=== PATIENT | male | born 1955 | race Hispanic/Latino ===

== ENCOUNTER 2017-12-03 13:41 | Inpatient (IN) | payer MEDICARE ==
[~2017-12-03] VITALS: Ht 167.6 cm; Wt 117.8 kg
[~2017-12-03 13:41] MED LIST: CYAN10009 PO; FURO40SO4 PO; HYDR-4068 PO; LISI10TA7 PO; LORA1TAB3 PO; MILK500C PO; MONT10TA21 PO; MULT-1259 PO; SPIR100T5 PO; TAMS0.4C32 PO
[2017-12-03 14:28] LABS: APPEARANCE,URINE Cloudy (CLEAR); BILIRUBIN,URINE Negative (NEGATIVE); COLOR,URINE Dark Yellow (YELLOW); GLUCOSE, URINE (UA) Negative (NEGATIVE); KETONES,URINE Trace mg/dL (NEGATIVE); LEUKOCYTE ESTERASE ,URINE Large (NEGATIVE); NITRATE,URINE Positive (NEGATIVE); OCCULT BLOOD,URINE Large (NEGATIVE); PH,URINE 6.5 (5.0-8.0); PROTEIN,URINE 300 (NEGATIVE)
[2017-12-03 14:43] LABS: BACTERIA,URINE Few /HPF (None Seen); RBC,URINE Full Field /HPF (0-1); SQUAMOUS EPITHELIAL CELL,UR 0-2 /HPF (0-2); WBC,URINE >100 /HPF (0-1); YEAST,URINE BUDDING Moderate /HPF (None Seen)
[2017-12-03] MEDS ORDERED: SODIUM CHLORIDE 0.9% 1000ML 1,000 ML IV ONE (14:59)
[2017-12-03] MEDS ORDERED: ONDANSETRON HCL MDV 20ML 2 MG/ML VIAL ONE (14:59)
[2017-12-03] MEDS ORDERED: MORPHINE SULFATE 4 MG/1ML SYG ONE (15:00)
[2017-12-03] MEDS ORDERED: ACETAMINOPHEN 325 MG TAB ONE (15:00)
[2017-12-03] MEDS ORDERED: SODIUM CHLORIDE 0.9% 1000ML 3,000 ML IV ONE (15:03)
[2017-12-03 15:09] LABS: BASOPHILS % (AUTO) 0.4 % (0.0-5.0); EOSINOPHILS % (AUTO) 0.4 % (0.0-8.0); HEMATOCRIT 36.2 % (42-54); LYMPHOCYTES % (AUTO) 11.8 % (21.0-51.0); MEAN CORPUSCULAR HEMOGLOBIN 36.3 pg (27.0-33.0); MEAN CORPUSCULAR HGB CONC 36.1 g/dL (32.0-36.0); MEAN CORPUSCULAR VOLUME 100.5 fL (79-99); MONOCYTES % (AUTO) 11.5 % (3.0-13.0); NEUTROPHILS % (AUTO) 75.9 % (40.0-77.0); NUCLEATED RED BLOOD CELLS 0.1 % (0.0-0.19); PLATELET COUNT (AUTO) 99 K/uL (130-400); RED CELL DISTRIBUTION WIDTH 14.7 % (11.0-15.5); WHITE BLOOD COUNT (AUTO) 7.8 K/uL (4.8-10.8)
[2017-12-03 15:14] LABS: INR 1.25 (0.85-1.15); PARTIAL THROMBOPLASTIN TIME 28.5 SEC (26.3-35.5); PROTHROMBIN TIME 12.8 SEC (9.6-11.6)
[2017-12-03] MEDS ORDERED: CEFTRIAXONE SODIUM 1 GM ONE (15:16)
[2017-12-03 15:18] LABS: CREATININE 0.8 mg/dL (0.5-1.5)
[2017-12-03 15:22] LABS: ALBUMIN 2.7 g/dL (3.5-5.0); BILIRUBIN,DIRECT 0.6 mg/dL (0.0-0.3); TOTAL PROTEIN, SERUM 6.6 g/dL (6.0-8.3)
[2017-12-03 15:31] LABS: CREATINE KINASE MB 0.6 ng/mL (0.5-3.6); CREATINE KINASE, TOTAL 101 U/L (21-232); MYOGLOBIN 35 ng/mL (10-92); TROPONIN I < 0.04 ng/mL (0.00-0.06)
[2017-12-03] MEDS ORDERED: METRONIDAZOLE 500MG/100ML BAG 100 ML ONE (18:55)
[2017-12-03] MEDS ORDERED: TRAMADOL HCL 50 MG TABLET ONE (21:08)
[2017-12-04] MEDS ORDERED: CEFTRIAXONE SODIUM 1 GM ONE (03:15)
[2017-12-04 07:00] LABS: BASOPHILS % (AUTO) 0.3 % (0.0-5.0); EOSINOPHILS % (AUTO) 0.8 % (0.0-8.0); HEMATOCRIT 32.3 % (42-54); MEAN CORPUSCULAR HEMOGLOBIN 35.4 pg (27.0-33.0); MEAN CORPUSCULAR HGB CONC 35.2 g/dL (32.0-36.0); MEAN CORPUSCULAR VOLUME 100.7 fL (79-99); MONOCYTES % (AUTO) 11.1 % (3.0-13.0); NEUTROPHILS % (AUTO) 72.8 % (40.0-77.0); NUCLEATED RED BLOOD CELLS 0.2 % (0.0-0.19); PLATELET COUNT (AUTO) 77 K/uL (130-400); RED BLOOD CELL COUNT(AUTO) 3.21 MIL/uL (4.50-6.20); RED CELL DISTRIBUTION WIDTH 14.9 % (11.0-15.5)
[2017-12-04 07:09] LABS: CREATININE 0.7 mg/dL (0.5-1.5)
[2017-12-04 07:16] LABS: ALBUMIN 2.2 g/dL (3.5-5.0); MAGNESIUM 1.5 mg/dL (1.80-2.40); TOTAL PROTEIN, SERUM 5.5 g/dL (6.0-8.3)
[2017-12-04] MEDS ORDERED: TRAMADOL HCL 50 MG TABLET ONE (09:27)
[2017-12-04 13:25] VITALS: BP 151/76
[2017-12-04] MEDS ORDERED: ACETAMINOPHEN 325 MG TAB PO PRN (13:45)
[2017-12-04] MEDS ORDERED: TRAMADOL HCL 50 MG TABLET PO PRN (13:45)
[2017-12-04] MEDS ORDERED: ONDANSETRON HCL MDV 20ML 2 MG/ML VIAL IVP PRN (13:45)
[2017-12-04] MEDS ORDERED: CEFTRIAXONE SODIUM 1 GM IVP SCH (14:00)
[2017-12-04] MEDS: PANTOPRAZOLE SODIUM 40 MG TABLET.DR PO SCH (14:55)
[2017-12-04] MEDS: SODIUM CHLORIDE 0.9% 1000ML 1,000 ML IV SCH ×2 (14:56→23:02)
[2017-12-04 16:00] VITALS: BP 157/73
[2017-12-04] MEDS ORDERED: ASPI-555 PO (19:51)
[2017-12-04 20:00] VITALS: BP 140/74
[2017-12-04 23:30] VITALS: BP 139/63
[2017-12-05] MEDS: CEFTRIAXONE SODIUM 1 GM IVP SCH (03:03)
[2017-12-05 03:08] VITALS: BP 145/75
[2017-12-05 05:44] LABS: BASOPHILS % (AUTO) 0.4 % (0.0-5.0); EOSINOPHILS % (AUTO) 1.8 % (0.0-8.0); HEMATOCRIT 31.3 % (42-54); LYMPHOCYTES % (AUTO) 19.9 % (21.0-51.0); MEAN CORPUSCULAR HEMOGLOBIN 36.6 pg (27.0-33.0); MEAN CORPUSCULAR HGB CONC 36.2 g/dL (32.0-36.0); MONOCYTES % (AUTO) 11.5 % (3.0-13.0); NEUTROPHILS % (AUTO) 66.4 % (40.0-77.0); NUCLEATED RED BLOOD CELLS 0.1 % (0.0-0.19); PLATELET COUNT (AUTO) 76 K/uL (130-400); RED CELL DISTRIBUTION WIDTH 14.5 % (11.0-15.5); WHITE BLOOD COUNT (AUTO) 4.4 K/uL (4.8-10.8)
[2017-12-05 06:02] LABS: ALBUMIN 2.1 g/dL (3.5-5.0); BILIRUBIN,TOTAL 2.9 mg/dL (0.2-1.0); CREATININE 0.8 mg/dL (0.5-1.5); MAGNESIUM 1.6 mg/dL (1.80-2.40); PHOSPHORUS 2.7 mg/dL (2.5-4.9); POTASSIUM 3.9 mmol/L (3.5-5.1); TOTAL PROTEIN, SERUM 5.4 g/dL (6.0-8.3); URIC ACID 2.9 mg/dL (2.6-7.2)
[2017-12-05] MEDS: PANTOPRAZOLE SODIUM 40 MG TABLET.DR PO SCH (08:44)
[2017-12-05 09:08] VITALS: BP 133/65
[2017-12-05 12:00] VITALS: BP 146/69
[2017-12-05] MEDS: SODIUM CHLORIDE 0.9% 1000ML 1,000 ML IV SCH (12:08)
[2017-12-05] MEDS ORDERED: MAGNESIUM 2GM PREMIX 50ML 50 ML IV SCH (14:30)
[2017-12-05] MEDS ORDERED: LORAZEPAM 1 MG TABLET PO PRN (14:45)
[2017-12-05] MEDS: HYDROCODONE/ACETAMINOPHEN 10/325 MG TAB PO PRN (15:34)
[2017-12-05 16:54] VITALS: BP 143/73
[2017-12-05 19:30] VITALS: BP 154/77
[2017-12-05] MEDS ORDERED: MONTELUKAST SODIUM 10 MG TAB PO SCH (21:00)
[2017-12-05 23:15] VITALS: BP 138/71
[2017-12-06] MEDS: CEFTRIAXONE SODIUM 1 GM IVP SCH (02:36)
[2017-12-06 03:40] VITALS: BP 154/74
[2017-12-06 05:53] LABS: HEMATOCRIT 32.2 % (42-54); MEAN CORPUSCULAR HEMOGLOBIN 35.1 pg (27.0-33.0); MEAN CORPUSCULAR HGB CONC 34.7 g/dL (32.0-36.0); MEAN CORPUSCULAR VOLUME 101.1 fL (79-99); PLATELET COUNT (AUTO) 87 K/uL (130-400); RED BLOOD CELL COUNT(AUTO) 3.18 MIL/uL (4.50-6.20); RED CELL DISTRIBUTION WIDTH 14.5 % (11.0-15.5); WHITE BLOOD COUNT (AUTO) 4.4 K/uL (4.8-10.8)
[2017-12-06 06:25] LABS: ALBUMIN 2.1 g/dL (3.5-5.0); BILIRUBIN,TOTAL 1.9 mg/dL (0.2-1.0); CREATININE 0.8 mg/dL (0.5-1.5); POTASSIUM 3.8 mmol/L (3.5-5.1); TOTAL PROTEIN, SERUM 5.6 g/dL (6.0-8.3)
[2017-12-06] MEDS: PANTOPRAZOLE SODIUM 40 MG TABLET.DR PO SCH (08:16)
[2017-12-06] MEDS ORDERED: **HM** MILK THISTLE 1000MG PO SCH (09:00)
[2017-12-06] MEDS ORDERED: ASPIRIN 81 MG EC TAB PO SCH (09:00)
[2017-12-06] MEDS ORDERED: FUROSEMIDE 40 MG TABLET PO SCH (09:00)
[2017-12-06] MEDS ORDERED: MULTIVITAMINS/MINERALS/IRO TAB PO SCH (09:00)
[2017-12-06] MEDS ORDERED: TAMSULOSIN HCL 0.4 MG CAP.ER.24H PO SCH (09:00)
[2017-12-06] MEDS ORDERED: SPIRONOLACTONE 25 MG TAB PO SCH (09:00)
[2017-12-06] MEDS ORDERED: CYANOCOBALAMIN (VITAMIN B-12) 1,000 MCG TABLET PO SCH (09:00)
[2017-12-06 09:18] VITALS: BP 160/67
[2017-12-06 12:16] VITALS: BP 117/69
[2017-12-06] MEDS: HYDROCODONE/ACETAMINOPHEN 10/325 MG TAB PO PRN (12:57)
== END 2017-12-06 13:05 | disposition home or self-care (01) | DRG 694 ==
LOC: EDH 13:41 → EDHIP 18:27 → 4CH 12-04 12:53
PROVIDERS: ADMIT Internal Medicine Nephrology; ATTEND Internal Medicine Nephrology
DX: N13.2 Hydronephrosis with renal and ureteral calculous obstruction (principal); D69.6 Thrombocytopenia, unspecified; K74.60 Unspecified cirrhosis of liver; Z68.41 Body mass index [BMI] 40.0-44.9, adult; E83.42 Hypomagnesemia; N39.0 Urinary tract infection, site not specified; B95.61 Methicillin susceptible Staphylococcus aureus infection as the cause of diseases classified elsewhere; B19.20 Unspecified viral hepatitis C without hepatic coma; E66.9 Obesity, unspecified; I10 Essential (primary) hypertension; N40.0 Benign prostatic hyperplasia without lower urinary tract symptoms; K57.90 Diverticulosis of intestine, part unspecified, without perforation or abscess without bleeding; K29.80 Duodenitis without bleeding
CPT/HCPCS: 36415; 71045; 74176; 76700; 80048; 80053; 80076; 81001; 82550; 82553; 83605; 83735; 83874; 84100; 84484; 84550; 85025; 85027; 85610; 85730; 87040; 87088; 87186; 93005; A4218; J0696; J2270; J3475; J3490; J7030

== ENCOUNTER 2018-05-06 12:46 | Inpatient (IN) | payer MEDICARE ==
[~2018-05-06 12:46] MED LIST changes: +ASPI-555 PO; -CYAN10009 PO; +ESOM40CA54 PO; -FURO40SO4 PO; +FURO40TA5 PO; +LACT10PA4 PO; -LORA1TAB3 PO; -MILK500C PO; -MULT-1259 PO; +PROP10TA10 PO
[2018-05-06 13:14] LABS: BASOPHILS % (AUTO) 1.2 % (0.0-5.0); EOSINOPHILS % (AUTO) 0.9 % (0.0-8.0); HEMATOCRIT 32.4 % (42-54); LYMPHOCYTES % (AUTO) 24.5 % (21.0-51.0); MEAN CORPUSCULAR HGB CONC 35.7 g/dL (32.0-36.0); MONOCYTES % (AUTO) 11.6 % (3.0-13.0); NEUTROPHILS % (AUTO) 61.8 % (40.0-77.0); PLATELET COUNT (AUTO) 97 K/uL (130-400); RED BLOOD CELL COUNT(AUTO) 3.21 MIL/uL (4.50-6.20); RED CELL DISTRIBUTION WIDTH 14.9 % (11.0-15.5); WHITE BLOOD COUNT (AUTO) 6.1 K/uL (4.8-10.8)
[2018-05-06 13:20] LABS: CREATININE 1.1 mg/dL (0.5-1.5); POTASSIUM 4.2 mmol/L (3.5-5.1)
[2018-05-06 13:27] LABS: INR 1.28 (0.85-1.15); PARTIAL THROMBOPLASTIN TIME 28.8 SEC (26.3-35.5); PROTHROMBIN TIME 13.4 SEC (9.6-11.6)
[2018-05-06 13:33] LABS: ALBUMIN 2.1 g/dL (3.5-5.0); CREATINE KINASE MB 1.2 ng/mL (0.5-3.6); TOTAL PROTEIN, SERUM 5.4 g/dL (6.0-8.3)
[2018-05-06 13:45] LABS: B-TYPE NATRIURETIC PEPTIDE 112 pg/mL (0-100)
[2018-05-06] MEDS ORDERED: LACTULOSE 20 GM/30 ML UDCUP ONE (15:51)
[2018-05-06] MEDS ORDERED: CEFTRIAXONE SODIUM 1 GM ONE (15:51)
[2018-05-06] MEDS ORDERED: SODIUM CHLORIDE 0.9% 100 ML IV ONE (15:52)
[2018-05-06 17:39] LABS: APPEARANCE,URINE Cloudy (CLEAR); BILIRUBIN,URINE Small (NEGATIVE); COLOR,URINE Dark Yellow (YELLOW); GLUCOSE, URINE (UA) Negative (NEGATIVE); KETONES,URINE Trace mg/dL (NEGATIVE); LEUKOCYTE ESTERASE ,URINE Moderate (NEGATIVE); NITRATE,URINE Negative (NEGATIVE); OCCULT BLOOD,URINE Negative (NEGATIVE); PH,URINE 5.5 (5.0-8.0); PROTEIN,URINE Trace (NEGATIVE)
[2018-05-06 17:46] LABS: AMPHET/METH SCREEN,URINE NEGATIVE (NEGATIVE); BARBITURATE SCREEN, URINE NEGATIVE (NEGATIVE); BENZODIAZEPINES SCREEN,URINE NEGATIVE (NEGATIVE); CANNABINOID SCREEN,URINE NEGATIVE (NEGATIVE); COCAINE SCREEN,URINE NEGATIVE (NEGATIVE); OPIATE SCREEN,URINE POSITIVE (NEGATIVE); PHENCYCLIDINE SCREEN,URINE NEGATIVE (NEGATIVE)
[2018-05-06 17:50] VITALS: BP 116/57
[2018-05-06] MEDS ORDERED: ONDANSETRON HCL 4 MG/2 ML VIAL ONE (17:50)
[2018-05-06] MEDS ORDERED: ONDANSETRON HCL MDV 20ML 2 MG/ML VIAL IVP PRN (18:00)
[2018-05-06] MEDS ORDERED: SPIR100T5 PO (18:04)
[2018-05-06] MEDS ORDERED: IPRA4AER IH (18:04)
[2018-05-06 18:12] LABS: BACTERIA,URINE Rare /HPF (None Seen); MUCUS,URINE Moderate LPF (None Seen); RBC,URINE None Seen /HPF (0-1)
[2018-05-06 18:13] LABS: HYALINE CASTS, URINE 26-50 /LPF (0-1 /LPF)
[2018-05-06 19:23] VITALS: BP 135/63
[2018-05-06] MEDS: LACTULOSE 20 GM/30 ML UDCUP PO SCH (20:57)
[2018-05-06] MEDS: MIDODRINE HCL 5 MG TABLET PO SCH (20:57)
[2018-05-06 22:41] LABS: CREATINE KINASE MB 1.2 ng/mL (0.5-3.6); CREATINE KINASE, TOTAL 104 U/L (21-232); MYOGLOBIN 55 ng/mL (10-92); TROPONIN I < 0.04 ng/mL (0.00-0.06)
[2018-05-06 23:24] VITALS: BP 132/68
[2018-05-07 03:57] VITALS: BP 119/53
[2018-05-07 04:40] LABS: MEAN CORPUSCULAR HEMOGLOBIN 34.8 pg (27.0-33.0); MEAN CORPUSCULAR HGB CONC 34.2 g/dL (32.0-36.0); MEAN CORPUSCULAR VOLUME 101.8 fL (79-99); NUCLEATED RED BLOOD CELLS 0.1 % (0.0-0.19); PLATELET COUNT (AUTO) 63 K/uL (130-400); RED BLOOD CELL COUNT(AUTO) 3.04 MIL/uL (4.50-6.20); RED CELL DISTRIBUTION WIDTH 14.7 % (11.0-15.5)
[2018-05-07 05:12] LABS: ALBUMIN 1.8 g/dL (3.5-5.0); BILIRUBIN,TOTAL 1.4 mg/dL (0.2-1.0); CREATININE 0.9 mg/dL (0.5-1.5); MAGNESIUM 1.6 mg/dL (1.80-2.40); PHOSPHORUS 3.3 mg/dL (2.5-4.9); POTASSIUM 4.5 mmol/L (3.5-5.1); THYROID STIMULATING HORMONE 1.24 uIU/mL (0.36-3.74)
[2018-05-07 05:13] LABS: CREATINE KINASE, TOTAL 94 U/L (21-232)
[2018-05-07 05:14] LABS: MYOGLOBIN 50 ng/mL (10-92); TROPONIN I < 0.04 ng/mL (0.00-0.06)
[2018-05-07 07:00] VITALS: BP 122/42
[2018-05-07] MEDS: PANTOPRAZOLE SODIUM 40 MG TABLET.DR PO SCH (09:14)
[2018-05-07] MEDS: MIDODRINE HCL 5 MG TABLET PO SCH ×3 (09:14→20:59)
[2018-05-07] MEDS: LACTULOSE 20 GM/30 ML UDCUP PO SCH ×3 (09:15→20:59)
[2018-05-07 11:00] VITALS: BP 136/59
[2018-05-07] MEDS ORDERED: ACETAMINOPHEN EXTRA STRENGTH 500 MG TABLET ONE (13:05)
[2018-05-07] MEDS: MAGNESIUM 2GM PREMIX 50ML 50 ML IV PRN (13:12)
[2018-05-07 16:00] VITALS: BP 128/56
[2018-05-07 19:32] VITALS: BP_SYST 129; BP_SYST 145; BP_SYST 153; BP_SYST 160; BP_DIAS 70; BP_DIAS 71; BP_DIAS 75
[2018-05-07 23:32] VITALS: BP 119/55
[2018-05-08 03:43] VITALS: BP 126/61
[2018-05-08 04:24] LABS: HEMATOCRIT 31.4 % (42-54); MEAN CORPUSCULAR HEMOGLOBIN 35.9 pg (27.0-33.0); MEAN CORPUSCULAR HGB CONC 35.3 g/dL (32.0-36.0); MEAN CORPUSCULAR VOLUME 101.8 fL (79-99); PLATELET COUNT (AUTO) 88 K/uL (130-400); RED BLOOD CELL COUNT(AUTO) 3.08 MIL/uL (4.50-6.20); WHITE BLOOD COUNT (AUTO) 4.9 K/uL (4.8-10.8)
[2018-05-08 04:35] LABS: CREATININE 0.8 mg/dL (0.5-1.5); MAGNESIUM 1.5 mg/dL (1.80-2.40); POTASSIUM 4.3 mmol/L (3.5-5.1)
[2018-05-08] MEDS: MAGNESIUM 2GM PREMIX 50ML 50 ML IV PRN (05:06)
[2018-05-08 07:35] VITALS: BP 133/52
[2018-05-08] MEDS: PANTOPRAZOLE SODIUM 40 MG TABLET.DR PO SCH (07:59)
[2018-05-08] MEDS: MIDODRINE HCL 5 MG TABLET PO SCH ×2 (07:59→13:07)
[2018-05-08] MEDS: LACTULOSE 20 GM/30 ML UDCUP PO SCH ×2 (07:59→13:07)
[2018-05-08 11:37] VITALS: BP_SYST 138; BP_SYST 141; BP_SYST 150; BP_DIAS 52; BP_DIAS 69; BP_DIAS 81
[2018-05-08] MEDS ORDERED: LACT PO (14:43)
[2018-05-08 15:27] VITALS: BP 150/57
== END 2018-05-08 17:40 | disposition home or self-care (01) | DRG 315 ==
LOC: EDH 12:46 → 2AH 16:00
PROVIDERS: ADMIT Internal Medicine Nephrology; ATTEND Internal Medicine Nephrology
DX: I95.9 Hypotension, unspecified (principal); R18.8 Other ascites; E87.1 Hypo-osmolality and hyponatremia; E83.42 Hypomagnesemia; K74.60 Unspecified cirrhosis of liver; E87.6 Hypokalemia; D64.9 Anemia, unspecified; I10 Essential (primary) hypertension; Z79.899 Other long term (current) drug therapy
CPT/HCPCS: 36415; 70450; 71045; 80048; 80053; 80305; 81001; 82140; 82550; 82553; 83605; 83690; 83735; 83874; 83880; 84100; 84443; 84484; 85025; 85027; 85610; 85730; 86850; 86900; 86901; 93005; 93306; 93880; J0696; J2405; J3475

== ENCOUNTER 2018-05-15 10:36 | Emergency (ER) | payer MEDICARE ==
[~2018-05-15 10:36] MED LIST changes: -ASPI-555 PO; -HYDR-4068 PO; +IPRA4AER IH; +LACT PO; -LACT10PA4 PO; -LISI10TA7 PO; -PROP10TA10 PO
[2018-05-15 11:13] LABS: CREATININE 0.8 mg/dL (0.5-1.5); POTASSIUM 4.3 mmol/L (3.5-5.1)
[2018-05-15 11:19] LABS: ALBUMIN 2.2 g/dL (3.5-5.0); BILIRUBIN,TOTAL 2.6 mg/dL (0.2-1.0); TOTAL PROTEIN, SERUM 6.1 g/dL (6.0-8.3)
[2018-05-15 11:23] LABS: BASOPHILS % (AUTO) 0.3 % (0.0-5.0); EOSINOPHILS % (AUTO) 0.4 % (0.0-8.0); HEMATOCRIT 35.2 % (42-54); LYMPHOCYTES % (AUTO) 13.5 % (21.0-51.0); MEAN CORPUSCULAR HEMOGLOBIN 36.4 pg (27.0-33.0); MEAN CORPUSCULAR HGB CONC 35.1 g/dL (32.0-36.0); MEAN CORPUSCULAR VOLUME 103.5 fL (79-99); MONOCYTES % (AUTO) 10.1 % (3.0-13.0); NEUTROPHILS % (AUTO) 75.7 % (40.0-77.0); PLATELET COUNT (AUTO) 90 K/uL (130-400); WHITE BLOOD COUNT (AUTO) 6.8 K/uL (4.8-10.8)
[2018-05-15] MEDS ORDERED: CLINDAMYCIN 600 MG/D5% WATER 50 ML IV ONE (11:55)
== END 2018-05-15 13:24 | disposition home or self-care (01) ==
LOC: EDH 10:36
DX: L03.311 Cellulitis of abdominal wall (principal); G89.29 Other chronic pain; M54.9 Dorsalgia, unspecified; K74.60 Unspecified cirrhosis of liver
CPT/HCPCS: 36415; 80053; 82140; 85025; 96365; 99284; J3490

== ENCOUNTER 2018-05-22 18:51 | Emergency (ER) | payer MEDICARE ==
[2018-05-22 19:31] LABS: BASOPHILS % (AUTO) 0.5 % (0.0-5.0); EOSINOPHILS % (AUTO) 2.3 % (0.0-8.0); HEMATOCRIT 37.8 % (42-54); LYMPHOCYTES % (AUTO) 17.5 % (21.0-51.0); MEAN CORPUSCULAR HEMOGLOBIN 34.4 pg (27.0-33.0); MEAN CORPUSCULAR VOLUME 104.2 fL (79-99); MONOCYTES % (AUTO) 13.5 % (3.0-13.0); NEUTROPHILS % (AUTO) 66.2 % (40.0-77.0); NUCLEATED RED BLOOD CELLS 0.1 % (0.0-0.19); PLATELET COUNT (AUTO) 121 K/uL (130-400); RED BLOOD CELL COUNT(AUTO) 3.63 MIL/uL (4.50-6.20); RED CELL DISTRIBUTION WIDTH 16.4 % (11.0-15.5); WHITE BLOOD COUNT (AUTO) 6.2 K/uL (4.8-10.8)
[2018-05-22 19:36] LABS: APPEARANCE,URINE Clear (CLEAR); BILIRUBIN,URINE Negative (NEGATIVE); COLOR,URINE Dark Yellow (YELLOW); GLUCOSE, URINE (UA) Negative (NEGATIVE); KETONES,URINE Trace mg/dL (NEGATIVE); LEUKOCYTE ESTERASE ,URINE Small (NEGATIVE); NITRATE,URINE Negative (NEGATIVE); OCCULT BLOOD,URINE Negative (NEGATIVE); PH,URINE 6.5 (5.0-8.0); PROTEIN,URINE Trace (NEGATIVE)
[2018-05-22 19:41] LABS: AMPHET/METH SCREEN,URINE NEGATIVE (NEGATIVE); BARBITURATE SCREEN, URINE NEGATIVE (NEGATIVE); BENZODIAZEPINES SCREEN,URINE NEGATIVE (NEGATIVE); CANNABINOID SCREEN,URINE NEGATIVE (NEGATIVE); COCAINE SCREEN,URINE NEGATIVE (NEGATIVE); OPIATE SCREEN,URINE POSITIVE (NEGATIVE); PHENCYCLIDINE SCREEN,URINE NEGATIVE (NEGATIVE)
[2018-05-22 19:53] LABS: CREATININE 0.8 mg/dL (0.5-1.5); POTASSIUM 4.5 mmol/L (3.5-5.1)
[2018-05-22 19:58] LABS: ALBUMIN 2.1 g/dL (3.5-5.0)
[2018-05-22 20:06] LABS: AMMONIA 45 umol/L (11-32); CREATINE KINASE, TOTAL 100 U/L (21-232); MYOGLOBIN 22 ng/mL (10-92); TROPONIN I < 0.04 ng/mL (0.00-0.06)
[2018-05-22 20:13] LABS: BACTERIA,URINE Rare /HPF (None Seen); MUCUS,URINE Few LPF (None Seen); SQUAMOUS EPITHELIAL CELL,UR Rare /HPF (0-2)
[2018-05-22 20:15] LABS: YEAST,URINE BUDDING Rare /HPF (None Seen)
[2018-05-22 21:09] LABS: INR 1.44 (0.85-1.15); PARTIAL THROMBOPLASTIN TIME 31.1 SEC (26.3-35.5)
== END 2018-05-22 21:01 | disposition home or self-care (01) ==
LOC: EDH 18:51
DX: R41.82 Altered mental status, unspecified (principal); F11.90 Opioid use, unspecified, uncomplicated; K74.69 Other cirrhosis of liver
CPT/HCPCS: 36415; 80053; 80305; 81001; 82140; 82550; 83690; 83874; 84484; 85025; 85610; 85730; 93005

== ENCOUNTER 2018-06-26 22:29 | Emergency (ER) | payer MEDICARE ==
[~2018-06-26 22:29] MED LIST changes: +LEVO500T2 PO
[2018-06-26 23:12] LABS: EOSINOPHILS % (AUTO) 3.5 % (0.0-8.0); HEMATOCRIT 38.8 % (42-54); LYMPHOCYTES % (AUTO) 15.1 % (21.0-51.0); MEAN CORPUSCULAR HEMOGLOBIN 35.6 pg (27.0-33.0); MEAN CORPUSCULAR HGB CONC 33.9 g/dL (32.0-36.0); MONOCYTES % (AUTO) 12.6 % (3.0-13.0); NEUTROPHILS % (AUTO) 62.8 % (40.0-77.0); PLATELET COUNT (AUTO) 109 K/uL (130-400); WHITE BLOOD COUNT (AUTO) 6.1 K/uL (4.8-10.8)
[2018-06-26 23:13] LABS: APPEARANCE,URINE Clear (CLEAR); BILIRUBIN,URINE Negative (NEGATIVE); COLOR,URINE Dark Yellow (YELLOW); GLUCOSE, URINE (UA) Negative (NEGATIVE); KETONES,URINE Trace mg/dL (NEGATIVE); LEUKOCYTE ESTERASE ,URINE Moderate (NEGATIVE); NITRATE,URINE Negative (NEGATIVE); OCCULT BLOOD,URINE Small (NEGATIVE); PH,URINE 6.5 (5.0-8.0); PROTEIN,URINE Trace (NEGATIVE)
[2018-06-26] MEDS ORDERED: IOHEXOL-350 75 ML VIAL IV ONE (23:14)
[2018-06-26 23:19] LABS: CREATININE 0.8 mg/dL (0.5-1.5); POTASSIUM 4.2 mmol/L (3.5-5.1)
[2018-06-26 23:23] LABS: INR 1.38 (0.85-1.15); PROTHROMBIN TIME 14.4 SEC (9.6-11.6)
[2018-06-26 23:24] LABS: ALBUMIN 2.3 g/dL (3.5-5.0); BILIRUBIN,TOTAL 2.6 mg/dL (0.2-1.0)
[2018-06-26 23:31] LABS: BACTERIA,URINE None Seen /HPF (None Seen); MUCUS,URINE Moderate LPF (None Seen); RBC,URINE 0-1 /HPF (0-1); SQUAMOUS EPITHELIAL CELL,UR Few /HPF (0-2)
== END 2018-06-27 00:38 | disposition home or self-care (01) ==
LOC: EDH 22:29
DX: K74.60 Unspecified cirrhosis of liver (principal); G89.29 Other chronic pain; M54.5 Low back pain; Z79.899 Other long term (current) drug therapy
CPT/HCPCS: 36415; 74177; 80053; 81001; 83690; 84484; 85025; 85610; 85730; 93005; 99285; Q9967

== ENCOUNTER 2019-01-23 04:54 | Inpatient (IN) | payer MEDICARE ==
[~2019-01-23] VITALS: Ht 167.6 cm; Wt 99.8 kg
[~2019-01-23 04:54] MED LIST changes: +CALC-509 PO; -LEVO500T2 PO; +MAGN400T6 PO; +NADO20TA12 PO; +RIFA550T PO
[2019-01-23 05:30] LABS: BASOPHILS % (AUTO) 0.4 % (0.0-5.0); EOSINOPHILS % (AUTO) 0.7 % (0.0-8.0); HEMATOCRIT 33.4 % (42-54); LYMPHOCYTES % (AUTO) 6.6 % (21.0-51.0); MEAN CORPUSCULAR HGB CONC 34.8 g/dL (32.0-36.0); MEAN CORPUSCULAR VOLUME 100.6 fL (79-99); MONOCYTES % (AUTO) 8.5 % (3.0-13.0); NEUTROPHILS % (AUTO) 83.8 % (40.0-77.0); PLATELET COUNT (AUTO) 184 K/uL (130-400); RED BLOOD CELL COUNT(AUTO) 3.32 MIL/uL (4.50-6.20); WHITE BLOOD COUNT (AUTO) 9.5 K/uL (4.8-10.8)
[2019-01-23 05:31] LABS: APPEARANCE,URINE Clear (CLEAR); BILIRUBIN,URINE Negative (NEGATIVE); COLOR,URINE Yellow (YELLOW); GLUCOSE, URINE (UA) Negative (NEGATIVE); KETONES,URINE Negative (NEGATIVE); LEUKOCYTE ESTERASE ,URINE Negative (NEGATIVE); NITRATE,URINE Negative (NEGATIVE); OCCULT BLOOD,URINE Negative (NEGATIVE); PH,URINE >=9.0 (5.0-8.0); PROTEIN,URINE Negative (NEGATIVE)
[2019-01-23 05:42] LABS: CREATININE 0.5 mg/dL (0.5-1.5); POTASSIUM 5.7 mmol/L (3.5-5.1)
[2019-01-23 05:47] LABS: ALBUMIN 2.2 g/dL (3.5-5.0); BILIRUBIN,TOTAL 1.8 mg/dL (0.2-1.0); TOTAL PROTEIN, SERUM 5.8 g/dL (6.0-8.3)
[2019-01-23] MEDS ORDERED: ONDANSETRON HCL 4 MG/2 ML VIAL IVP PRN (07:30)
[2019-01-23] MEDS ORDERED: PANTOPRAZOLE 40 MG/VIAL IVP SCH (09:00)
[2019-01-23] MEDS ORDERED: LACTULOSE 20 GM/30 ML UDCUP NG SCH (09:00)
[2019-01-23] MEDS ORDERED: LACTULOSE 20 GM/30 ML UDCUP ONE ×2 (09:04→12:54)
[2019-01-23] MEDS ORDERED: PANTOPRAZOLE SODIUM 40 MG TABLET.DR PO ONE (09:05)
[2019-01-23] MEDS ORDERED: ACETAMINOPHEN EXTRA STRENGTH 500 MG TABLET ONE (09:05)
[2019-01-23] MEDS ORDERED: SODIUM CHLORIDE 0.9% 100 ML IV ONE (12:23)
[2019-01-23] MEDS ORDERED: CEFTRIAXONE SODIUM 1 GM ONE (12:23)
[2019-01-23] MEDS ORDERED: MAGNESIUM OXIDE 400 MG TABLET PO ONE (13:00)
[2019-01-23] MEDS ORDERED: ACETAMINOPHEN EXTRA STRENGTH 500 MG TABLET PO PRN (14:00)
[2019-01-23] MEDS: CEFTRIAXONE SODIUM 1 GM IVP SCH (14:00)
--- NOTE | 2019-01-23 15:00 | NUR ---
ADMISSION FROM ER. PER SERVICES OF DR. PEREIRA , PT AAO X 3 REVIEW PLAN OF CARE , PT HAVING STOOLS AFTER GETTING SOME LACTULOSE IN ER. . STATED THAT HE FELT BETTER ,,, , AT THE BEDSIDE , CALL LIGHT IN REACH...
[2019-01-23] MEDS: LACTULOSE 20 GM/30 ML UDCUP PO SCH ×2 (15:17→23:25)
[2019-01-23] MEDS ORDERED: LACT10SO9 PO (15:19)
[2019-01-23 16:00] VITALS: BP 145/68
[2019-01-23] MEDS: MAGNESIUM OXIDE 400 MG TABLET PO SCH (18:12)
[2019-01-23 19:55] VITALS: BP 121/51
[2019-01-23 22:59] VITALS: BP 123/53
[2019-01-23] MEDS: RIFAXIMIN 550 MG TABLET PO SCH (23:25)
[2019-01-23] MEDS: MONTELUKAST SODIUM 10 MG TAB PO SCH (23:25)
[2019-01-24 03:49] VITALS: BP 133/70
[2019-01-24 06:33] LABS: ALBUMIN 1.9 g/dL (3.5-5.0); BILIRUBIN,TOTAL 2.5 mg/dL (0.2-1.0); CREATININE 0.8 mg/dL (0.5-1.5); POTASSIUM 3.8 mmol/L (3.5-5.1)
[2019-01-24] MEDS: PANTOPRAZOLE SODIUM 40 MG TABLET.DR PO SCH (07:30)
[2019-01-24 07:39] LABS: HEMATOCRIT 35.1 % (42-54); MEAN CORPUSCULAR HEMOGLOBIN 34.9 pg (27.0-33.0); MEAN CORPUSCULAR VOLUME 102.6 fL (79-99); NUCLEATED RED BLOOD CELLS 0.1 % (0.0-0.19); RED BLOOD CELL COUNT(AUTO) 3.42 MIL/uL (4.50-6.20); RED CELL DISTRIBUTION WIDTH 15.3 % (11.0-15.5); WHITE BLOOD COUNT (AUTO) 4.1 K/uL (4.8-10.8)
[2019-01-24 07:52] LABS: PLATELET COUNT (AUTO) 75 K/uL (130-400)
[2019-01-24 08:00] VITALS: BP 146/63
[2019-01-24] MEDS ORDERED: NADOLOL 40 MG TAB PO SCH (09:00)
[2019-01-24] MEDS ORDERED: NADOLOL 20 MG PO SCH (09:00)
[2019-01-24] MEDS: LACTULOSE 20 GM/30 ML UDCUP PO SCH ×4 (09:00→21:00)
[2019-01-24] MEDS: TAMSULOSIN HCL 0.4 MG CAP.ER.24H PO SCH (10:01)
[2019-01-24] MEDS: MAGNESIUM OXIDE 400 MG TABLET PO SCH ×3 (10:04→17:39)
[2019-01-24] MEDS: RIFAXIMIN 550 MG TABLET PO SCH ×2 (10:04→21:44)
[2019-01-24 11:00] VITALS: BP 146/71
--- NOTE | 2019-01-24 13:37 | NUR ---
DC PLAN VISITED WITH PATIENT. PATIENT LIVES WITH SPOUSE. SEMI INDEPENDENT ABLE TO PERFORM SOME ADL'S. PATIENT HAS PROVIDER SERVICES. FEELS SAFE TO RETURN HOME. SOME CONCERNS ABOUT GETTING HOME. SAYS THAT SON IS AVAILABLE WITH CONSTRAINTS. IT WOULD BE BETTER IF HE WAS DISCHARGED TOMORROW. ASKED IF HE HAD EVERY TRIED USING [facility] FOR TRANSPORT SAID NO. Addendum: 01/24/19 at 1339 by QUINN WILKERSON RN CM Amended: Links added.
[2019-01-24] MEDS: CEFTRIAXONE SODIUM 1 GM IVP SCH (14:07)
[2019-01-24 16:00] VITALS: BP 128/52
[2019-01-24 19:29] VITALS: BP 113/44
[2019-01-24] MEDS: MONTELUKAST SODIUM 10 MG TAB PO SCH (21:44)
[2019-01-24] MEDS: NADOLOL 20 MG PO SCH (21:45)
[2019-01-24 23:06] VITALS: BP 120/58
[2019-01-25 03:40] VITALS: BP 122/47
[2019-01-25 06:01] LABS: BASOPHILS % (AUTO) 0.5 % (0.0-5.0); EOSINOPHILS % (AUTO) 2.8 % (0.0-8.0); HEMATOCRIT 32.4 % (42-54); MEAN CORPUSCULAR HEMOGLOBIN 34.1 pg (27.0-33.0); MEAN CORPUSCULAR HGB CONC 33.7 g/dL (32.0-36.0); MEAN CORPUSCULAR VOLUME 101.4 fL (79-99); MONOCYTES % (AUTO) 13.5 % (3.0-13.0); NEUTROPHILS % (AUTO) 51.2 % (40.0-77.0); PLATELET COUNT (AUTO) 70 K/uL (130-400); RED BLOOD CELL COUNT(AUTO) 3.19 MIL/uL (4.50-6.20); RED CELL DISTRIBUTION WIDTH 15.4 % (11.0-15.5); WHITE BLOOD COUNT (AUTO) 3.2 K/uL (4.8-10.8)
[2019-01-25] MEDS: PANTOPRAZOLE SODIUM 40 MG TABLET.DR PO SCH (06:28)
[2019-01-25 06:30] LABS: BILIRUBIN,TOTAL 1.3 mg/dL (0.2-1.0); CREATININE 0.7 mg/dL (0.5-1.5); POTASSIUM 3.8 mmol/L (3.5-5.1); TOTAL PROTEIN, SERUM 5.4 g/dL (6.0-8.3)
[2019-01-25 07:30] VITALS: BP 117/58
[2019-01-25] MEDS: NADOLOL 20 MG PO SCH (09:00)
[2019-01-25] MEDS: TAMSULOSIN HCL 0.4 MG CAP.ER.24H PO SCH (10:15)
[2019-01-25] MEDS: MAGNESIUM OXIDE 400 MG TABLET PO SCH ×3 (10:15→17:00)
[2019-01-25] MEDS: RIFAXIMIN 550 MG TABLET PO SCH ×2 (10:16→21:04)
[2019-01-25] MEDS: LACTULOSE 20 GM/30 ML UDCUP PO SCH ×5 (10:16→21:04)
[2019-01-25 11:00] VITALS: BP 123/54
[2019-01-25] MEDS: CEFTRIAXONE SODIUM 1 GM IVP SCH (15:01)
[2019-01-25 16:00] VITALS: BP 111/46
[2019-01-25 20:00] VITALS: BP 117/60
[2019-01-25] MEDS: MONTELUKAST SODIUM 10 MG TAB PO SCH (21:04)
[2019-01-26] VITALS: BP 108/58
[2019-01-26 04:00] VITALS: BP 106/49
--- NOTE | 2019-01-26 04:33 | NUR ---
SLEPT Pt slept well.
[2019-01-26 04:57] LABS: HEMATOCRIT 29.3 % (42-54); MEAN CORPUSCULAR HEMOGLOBIN 36.3 pg (27.0-33.0); MEAN CORPUSCULAR HGB CONC 35.7 g/dL (32.0-36.0); MEAN CORPUSCULAR VOLUME 101.7 fL (79-99); NUCLEATED RED BLOOD CELLS 0.1 % (0.0-0.19); PLATELET COUNT (AUTO) 59 K/uL (130-400); RED BLOOD CELL COUNT(AUTO) 2.89 MIL/uL (4.50-6.20); RED CELL DISTRIBUTION WIDTH 14.9 % (11.0-15.5); WHITE BLOOD COUNT (AUTO) 2.8 K/uL (4.8-10.8)
[2019-01-26 05:06] LABS: CREATININE 0.8 mg/dL (0.5-1.5); MAGNESIUM 1.5 mg/dL (1.80-2.40); POTASSIUM 3.7 mmol/L (3.5-5.1)
[2019-01-26 06:21] LABS: BAND NEUTROPHILS % (MANUAL) 2 % (0-2); EOSINOPHILS % (MANUAL) 6 % (1-6); LYMPHOCYTES % (MANUAL) 30 % (22-44); MAN.DIFF COMMENT-IMPRESSION MANUAL DIFFERENTIAL; MONOCYTES % (MANUAL) 6 % (2-9); PLATELET MORPHOLOGY COMMENT DECREASED; REACTIVE LYMPHOCYTES 3 % (0-0); SEGMENTED NEUTROPHILS % 53 % (40-70)
[2019-01-26] MEDS: PANTOPRAZOLE SODIUM 40 MG TABLET.DR PO SCH (06:34)
[2019-01-26 08:13] VITALS: BP 105/48
[2019-01-26] MEDS: RIFAXIMIN 550 MG TABLET PO SCH (08:59)
[2019-01-26] MEDS: TAMSULOSIN HCL 0.4 MG CAP.ER.24H PO SCH (08:59)
[2019-01-26] MEDS: LACTULOSE 20 GM/30 ML UDCUP PO SCH ×2 (08:59→12:41)
[2019-01-26] MEDS: MAGNESIUM OXIDE 400 MG TABLET PO SCH ×2 (08:59→12:10)
[2019-01-26] MEDS: NADOLOL 20 MG PO SCH (09:00)
[2019-01-26 11:39] VITALS: BP 117/58
[2019-01-26] MEDS ORDERED: SULF1TAB42 PO (14:07)
[2019-01-26] MEDS: CEFTRIAXONE SODIUM 1 GM IVP SCH (14:34)
--- NOTE | 2019-01-26 16:00 | NUR ---
DISCHARGE INSTRUCTIONS GIVEN . IV DISCONTINUED WITH INNER CANNULA INTACT. PATIENT INSTRUCTED TO START ON NEW MEDICATION AND PRESCRIPTION TO BE FILLED. ALL QUESTIONS ANSWERED. PATIENT TO CALL TUESDAY AND FOLLOW UP WITH PCP AND DR. LAMBERT.
== END 2019-01-26 16:15 | disposition home or self-care (01) | DRG 442 ==
LOC: EDH 04:54 → EDHIP 06:57 → 3DH 14:20
PROVIDERS: ADMIT Internal Medicine Nephrology; ATTEND Internal Medicine Nephrology
DX: K72.90 Hepatic failure, unspecified without coma (principal); R18.8 Other ascites; K74.60 Unspecified cirrhosis of liver; B19.20 Unspecified viral hepatitis C without hepatic coma; E87.5 Hyperkalemia; I10 Essential (primary) hypertension; I73.9 Peripheral vascular disease, unspecified; J44.9 Chronic obstructive pulmonary disease, unspecified; N40.0 Benign prostatic hyperplasia without lower urinary tract symptoms; E66.9 Obesity, unspecified; Z87.440 Personal history of urinary (tract) infections; Z91.19 Patient's noncompliance with other medical treatment and regimen; Z68.35 Body mass index [BMI] 35.0-35.9, adult
CPT/HCPCS: 36415; 80048; 80053; 81003; 82140; 82550; 83605; 83735; 84484; 85025; 85027; 87040; 87077; 87088; 87186; 87804; 93005; G0378; J0696

== ENCOUNTER 2019-03-07 09:55 | Emergency (ER) | payer MEDICARE ==
[~2019-03-07 09:55] MED LIST changes: -CALC-509 PO; -ESOM40CA54 PO; -FURO40TA5 PO; -IPRA4AER IH; -LACT PO; +LACT10SO9 PO; -SPIR100T5 PO; +SULF1TAB42 PO
[2019-03-07 10:15] LABS: BASOPHILS % (AUTO) 0.8 % (0.0-5.0); EOSINOPHILS % (AUTO) 2.4 % (0.0-8.0); HEMATOCRIT 35.7 % (42-54); LYMPHOCYTES % (AUTO) 32.3 % (21.0-51.0); MEAN CORPUSCULAR HEMOGLOBIN 33.9 pg (27.0-33.0); MEAN CORPUSCULAR HGB CONC 33.7 g/dL (32.0-36.0); MEAN CORPUSCULAR VOLUME 100.5 fL (79-99); MONOCYTES % (AUTO) 11.9 % (3.0-13.0); NEUTROPHILS % (AUTO) 52.6 % (40.0-77.0); NUCLEATED RED BLOOD CELLS 0.1 % (0.0-0.19); PLATELET COUNT (AUTO) 101 K/uL (130-400); RED BLOOD CELL COUNT(AUTO) 3.55 MIL/uL (4.50-6.20); RED CELL DISTRIBUTION WIDTH 15.2 % (11.0-15.5); WHITE BLOOD COUNT (AUTO) 3.8 K/uL (4.8-10.8)
[2019-03-07 10:19] LABS: CREATININE 1.3 mg/dL (0.5-1.5); POTASSIUM 4.2 mmol/L (3.5-5.1)
[2019-03-07 10:23] LABS: ALBUMIN 2.3 g/dL (3.5-5.0)
[2019-03-07 10:27] LABS: INR 1.33 (0.85-1.15); PARTIAL THROMBOPLASTIN TIME 32.1 SEC (26.3-35.5); PROTHROMBIN TIME 13.9 SEC (9.6-11.6)
[2019-03-07 10:50] LABS: PLATELET MORPHOLOGY COMMENT SLIGHTLY DECREASED
[2019-03-07] MEDS ORDERED: ONDANSETRON HCL 4 MG/2 ML VIAL ONE (11:04)
[2019-03-07] MEDS ORDERED: MORPHINE SULFATE 4 MG/1ML SYG ONE (11:05)
[2019-03-07] MEDS ORDERED: IOHEXOL-350 75 ML VIAL IV ONE (11:28)
[2019-03-07 12:19] LABS: APPEARANCE,URINE Clear (CLEAR); BILIRUBIN,URINE Negative (NEGATIVE); COLOR,URINE Yellow (YELLOW); GLUCOSE, URINE (UA) Negative (NEGATIVE); KETONES,URINE Negative (NEGATIVE); LEUKOCYTE ESTERASE ,URINE Small (NEGATIVE); NITRATE,URINE Negative (NEGATIVE); OCCULT BLOOD,URINE Negative (NEGATIVE); PH,URINE 7.5 (5.0-8.0); PROTEIN,URINE Negative (NEGATIVE)
[2019-03-07 12:28] LABS: BACTERIA,URINE Rare /HPF (None Seen); RBC,URINE 0-1 /HPF (0-1); WBC,URINE 0-1 /HPF (0-1)
[2019-03-07 12:29] LABS: SQUAMOUS EPITHELIAL CELL,UR Rare /HPF (0-2)
== END 2019-03-07 14:14 | disposition home or self-care (01) ==
LOC: EDH 09:55
DX: K42.9 Umbilical hernia without obstruction or gangrene (principal); K74.60 Unspecified cirrhosis of liver; G89.29 Other chronic pain; M54.5 Low back pain; J44.9 Chronic obstructive pulmonary disease, unspecified
CPT/HCPCS: 36415; 74177; 80053; 81001; 83690; 85025; 85610; 85730; 93005; 96374; 96375; 99285; J2270; J2405; Q9967

== ENCOUNTER 2019-03-20 13:26 | Emergency (ER) | payer MEDICARE ==
[2019-03-20 14:29] LABS: BASOPHILS % (AUTO) 0.6 % (0.0-5.0); EOSINOPHILS % (AUTO) 3.1 % (0.0-8.0); HEMATOCRIT 31.5 % (42-54); LYMPHOCYTES % (AUTO) 31.2 % (21.0-51.0); MEAN CORPUSCULAR HEMOGLOBIN 33.8 pg (27.0-33.0); MEAN CORPUSCULAR HGB CONC 33.9 g/dL (32.0-36.0); MEAN CORPUSCULAR VOLUME 99.8 fL (79-99); MONOCYTES % (AUTO) 13.9 % (3.0-13.0); NEUTROPHILS % (AUTO) 51.2 % (40.0-77.0); NUCLEATED RED BLOOD CELLS 0.1 % (0.0-0.19); PLATELET COUNT (AUTO) 78 K/uL (130-400); RED BLOOD CELL COUNT(AUTO) 3.16 MIL/uL (4.50-6.20); RED CELL DISTRIBUTION WIDTH 15.3 % (11.0-15.5)
[2019-03-20 14:30] LABS: APPEARANCE,URINE Clear (CLEAR); BILIRUBIN,URINE Negative (NEGATIVE); COLOR,URINE Dark Yellow (YELLOW); GLUCOSE, URINE (UA) Negative (NEGATIVE); KETONES,URINE Trace mg/dL (NEGATIVE); LEUKOCYTE ESTERASE ,URINE Small (NEGATIVE); NITRATE,URINE Negative (NEGATIVE); OCCULT BLOOD,URINE Negative (NEGATIVE); PH,URINE 6.5 (5.0-8.0); PROTEIN,URINE Negative (NEGATIVE)
[2019-03-20 14:36] LABS: CREATININE 0.7 mg/dL (0.5-1.5); POTASSIUM 3.9 mmol/L (3.5-5.1)
[2019-03-20 14:39] LABS: INR 1.46 (0.85-1.15); PARTIAL THROMBOPLASTIN TIME 34.8 SEC (26.3-35.5); PROTHROMBIN TIME 15.2 SEC (9.6-11.6)
[2019-03-20 14:41] LABS: ALBUMIN 2.2 g/dL (3.5-5.0); BILIRUBIN,TOTAL 1.5 mg/dL (0.2-1.0); TOTAL PROTEIN, SERUM 5.4 g/dL (6.0-8.3)
[2019-03-20 14:49] LABS: WBC,URINE 0-1 /HPF (0-1)
[2019-03-20 14:50] LABS: BACTERIA,URINE Rare /HPF (None Seen); MUCUS,URINE Few LPF (None Seen); SQUAMOUS EPITHELIAL CELL,UR Few /HPF (0-2)
[2019-03-20] MEDS ORDERED: FUROSEMIDE 10 MG/ML 2ML VIAL ONE (15:43)
[2019-03-20 16:02] LABS: BAND NEUTROPHILS % (MANUAL) 1 % (0-2); EOSINOPHILS % (MANUAL) 2 % (1-6); LYMPHOCYTES % (MANUAL) 28 % (22-44); MAN.DIFF COMMENT-IMPRESSION MANUAL DIFFERENTIAL; MONOCYTES % (MANUAL) 4 % (2-9); REACTIVE LYMPHOCYTES 2 % (0-0); SEGMENTED NEUTROPHILS % 63 % (40-70)
[2019-03-20 16:04] LABS: PLATELET MORPHOLOGY COMMENT DECREASED
== END 2019-03-20 15:57 | disposition home or self-care (01) ==
LOC: EDH 13:26
DX: K70.31 Alcoholic cirrhosis of liver with ascites (principal); D61.818 Other pancytopenia; G89.29 Other chronic pain; J44.9 Chronic obstructive pulmonary disease, unspecified
CPT/HCPCS: 36415; 76705; 80053; 81001; 85025; 85610; 85730; 96374; 99285; J1940

== ENCOUNTER 2019-07-11 11:45 | Day surgery (SDC) | payer MEDICARE ==
[~2019-07-11] VITALS: Ht 167.6 cm; Wt 104.3 kg
[2019-07-11] VITALS (8 sets, daily range): BP systolic 149–174; BP diastolic 63–82
[~2019-07-11 11:45] MED LIST changes: +CHOL200074 PO; +ESOM40CA54 PO; -MAGN400T6 PO; +MAGN400T8 PO; +SODIUM CHLORIDE 0.9% 1000ML 1,000 ML IV ONE; -SULF1TAB42 PO; +VIT1CAPS5 PO; +ZINC220C6 PO
[2019-07-11 12:25] LABS: BASOPHILS % (AUTO) 0.8 % (0.0-5.0); EOSINOPHILS % (AUTO) 3.6 % (0.0-8.0); HEMATOCRIT 33.7 % (42-54); LYMPHOCYTES % (AUTO) 41.7 % (21.0-51.0); MEAN CORPUSCULAR HEMOGLOBIN 34.2 pg (27.0-33.0); MEAN CORPUSCULAR HGB CONC 34.3 g/dL (32.0-36.0); MEAN CORPUSCULAR VOLUME 99.8 fL (79-99); MONOCYTES % (AUTO) 10.7 % (3.0-13.0); NEUTROPHILS % (AUTO) 43.2 % (40.0-77.0); NUCLEATED RED BLOOD CELLS 0.1 % (0.0-0.19); PLATELET COUNT (AUTO) 86 K/uL (130-400); RED BLOOD CELL COUNT(AUTO) 3.38 MIL/uL (4.50-6.20); RED CELL DISTRIBUTION WIDTH 15.9 % (11.0-15.5); WHITE BLOOD COUNT (AUTO) 3.3 K/uL (4.8-10.8)
[2019-07-11 12:37] LABS: INR 1.41 (0.85-1.15); PROTHROMBIN TIME 14.6 SEC (9.6-11.6)
[2019-07-11 12:41] LABS: ALBUMIN 2.2 g/dL (3.5-5.0); BILIRUBIN,DIRECT 0.5 mg/dL (0.0-0.3); BILIRUBIN,TOTAL 2.1 mg/dL (0.2-1.0); CREATININE 0.7 mg/dL (0.5-1.5); POTASSIUM 4.7 mmol/L (3.5-5.1); TOTAL PROTEIN, SERUM 5.9 g/dL (6.0-8.3)
[2019-07-11] MEDS ORDERED: PROPOFOL 10 MG/ML 20ML VIAL IV ONE ×2 (13:36)
== END 2019-07-11 14:50 | disposition home or self-care (01) ==
LOC: DAH 11:45 → ENDO 11:45
PROVIDERS: ATTEND Internal Medicine Gastroenterology
DX: K74.60 Unspecified cirrhosis of liver (principal); I85.10 Secondary esophageal varices without bleeding; K76.6 Portal hypertension; K29.00 Acute gastritis without bleeding; K64.0 First degree hemorrhoids; E66.9 Obesity, unspecified; I25.10 Atherosclerotic heart disease of native coronary artery without angina pectoris; I25.2 Old myocardial infarction; J45.909 Unspecified asthma, uncomplicated; Z79.899 Other long term (current) drug therapy
CPT/HCPCS: 36415; 43235; 80053; 82247; 82248; 85025; 85610; A4215; A4221; A4222; A4223; A4606; A4620; A4663; J2704 ×2; J7030; 43244

== ENCOUNTER → 2019-07-17 | Outpatient (CLI) | payer MEDICARE ==
[~2019-07-17] MED LIST changes: -SODIUM CHLORIDE 0.9% 1000ML 1,000 ML IV ONE
[2019-07-17 12:18] LABS: BASOPHILS % (AUTO) 0.5 % (0.0-5.0); EOSINOPHILS % (AUTO) 3.5 % (0.0-8.0); HEMATOCRIT 32.6 % (42-54); LYMPHOCYTES % (AUTO) 36.2 % (21.0-51.0); MEAN CORPUSCULAR HEMOGLOBIN 34.9 pg (27.0-33.0); MEAN CORPUSCULAR HGB CONC 34.6 g/dL (32.0-36.0); MEAN CORPUSCULAR VOLUME 100.8 fL (79-99); MONOCYTES % (AUTO) 12.3 % (3.0-13.0); NEUTROPHILS % (AUTO) 47.5 % (40.0-77.0); NUCLEATED RED BLOOD CELLS 0.1 % (0.0-0.19); PLATELET COUNT (AUTO) 88 K/uL (130-400); RED BLOOD CELL COUNT(AUTO) 3.23 MIL/uL (4.50-6.20); RED CELL DISTRIBUTION WIDTH 16.6 % (11.0-15.5); WHITE BLOOD COUNT (AUTO) 3.5 K/uL (4.8-10.8)
[2019-07-17 12:32] LABS: ALBUMIN 2.1 g/dL (3.5-5.0); BILIRUBIN,DIRECT 0.5 mg/dL (0.0-0.3); BILIRUBIN,TOTAL 2.1 mg/dL (0.2-1.0); CREATININE 0.7 mg/dL (0.5-1.5); POTASSIUM 4.4 mmol/L (3.5-5.1); TOTAL PROTEIN, SERUM 5.8 g/dL (6.0-8.3)
[2019-07-17 12:38] LABS: INR 1.36 (0.85-1.15); PROTHROMBIN TIME 14.1 SEC (9.6-11.6)
== END | disposition home or self-care (01) ==
LOC: LAB 11:35
DX: K74.60 Unspecified cirrhosis of liver (principal); B18.2 Chronic viral hepatitis C
CPT/HCPCS: 36415; 80053; 82247; 82248; 85025; 85610

== ENCOUNTER → 2019-07-24 | Outpatient (CLI) | payer MEDICARE ==
[2019-07-24 11:24] LABS: BASOPHILS % (AUTO) 0.4 % (0.0-5.0); EOSINOPHILS % (AUTO) 3.1 % (0.0-8.0); HEMATOCRIT 31.6 % (42-54); MEAN CORPUSCULAR HEMOGLOBIN 34.7 pg (27.0-33.0); MEAN CORPUSCULAR HGB CONC 34.7 g/dL (32.0-36.0); MONOCYTES % (AUTO) 11.2 % (3.0-13.0); NEUTROPHILS % (AUTO) 43.3 % (40.0-77.0); NUCLEATED RED BLOOD CELLS 0.2 % (0.0-0.19); PLATELET COUNT (AUTO) 81 K/uL (130-400); RED BLOOD CELL COUNT(AUTO) 3.16 MIL/uL (4.50-6.20); RED CELL DISTRIBUTION WIDTH 16.2 % (11.0-15.5); WHITE BLOOD COUNT (AUTO) 2.6 K/uL (4.8-10.8)
[2019-07-24 11:39] LABS: ALBUMIN 2.1 g/dL (3.5-5.0); BILIRUBIN,DIRECT 0.5 mg/dL (0.0-0.3); BILIRUBIN,TOTAL 1.9 mg/dL (0.2-1.0); CREATININE 0.7 mg/dL (0.5-1.5); POTASSIUM 4.1 mmol/L (3.5-5.1); TOTAL PROTEIN, SERUM 5.6 g/dL (6.0-8.3)
[2019-07-24 11:41] LABS: INR 1.49 (0.85-1.15); PROTHROMBIN TIME 15.4 SEC (9.6-11.6)
[2019-07-24 11:53] LABS: EOSINOPHILS % (MANUAL) 4 % (1-6); LYMPHOCYTES % (MANUAL) 45 % (22-44); MAN.DIFF COMMENT-IMPRESSION MANUAL DIFFERENTIAL; MONOCYTES % (MANUAL) 5 % (2-9); SEGMENTED NEUTROPHILS % 46 % (40-70)
[2019-07-24 11:54] LABS: PLATELET MORPHOLOGY COMMENT DECREASED
== END | disposition home or self-care (01) ==
LOC: LAB 10:38
DX: K74.60 Unspecified cirrhosis of liver (principal); B18.2 Chronic viral hepatitis C
CPT/HCPCS: 36415; 80053; 82248; 85025; 85610

== ENCOUNTER 2019-10-17 16:55 | Emergency (ER) | payer MEDICARE ==
[2019-10-17] MEDS ORDERED: MORPHINE SULFATE 2 MG/ML 1ML SYG ONE (17:33)
[2019-10-17] MEDS ORDERED: ONDANSETRON HCL 4 MG/2 ML VIAL ONE (17:33)
[2019-10-17 17:37] LABS: BASOPHILS % (AUTO) 0.6 % (0.0-5.0); EOSINOPHILS % (AUTO) 3.3 % (0.0-8.0); HEMATOCRIT 31.6 % (42-54); LYMPHOCYTES % (AUTO) 40.1 % (21.0-51.0); MEAN CORPUSCULAR HEMOGLOBIN 32.8 pg (27.0-33.0); MEAN CORPUSCULAR HGB CONC 33.2 g/dL (32.0-36.0); MEAN CORPUSCULAR VOLUME 98.8 fL (79-99); MONOCYTES % (AUTO) 10.8 % (3.0-13.0); NEUTROPHILS % (AUTO) 44.9 % (40.0-77.0); PLATELET COUNT (AUTO) 102 K/uL (130-400); RED CELL DISTRIBUTION WIDTH 15.9 % (11.0-15.5); WHITE BLOOD COUNT (AUTO) 3.6 K/uL (4.8-10.8)
[2019-10-17 17:54] LABS: CREATININE 0.8 mg/dL (0.5-1.5); POTASSIUM 4.5 mmol/L (3.5-5.1)
[2019-10-17 18:01] LABS: ALBUMIN 2.2 g/dL (3.5-5.0); BILIRUBIN,TOTAL 1.8 mg/dL (0.2-1.0); TOTAL PROTEIN, SERUM 5.8 g/dL (6.0-8.3)
[2019-10-17 18:06] LABS: APPEARANCE,URINE Clear (CLEAR); BILIRUBIN,URINE Negative (NEGATIVE); COLOR,URINE Dark Yellow (YELLOW); GLUCOSE, URINE (UA) Negative (NEGATIVE); KETONES,URINE Trace mg/dL (NEGATIVE); LEUKOCYTE ESTERASE ,URINE Negative (NEGATIVE); NITRATE,URINE Negative (NEGATIVE); OCCULT BLOOD,URINE Negative (NEGATIVE); PH,URINE 5.5 (5.0-8.0); PROTEIN,URINE Negative (NEGATIVE)
[2019-10-17 18:32] LABS: BACTERIA,URINE Few /HPF (None Seen); MUCUS,URINE Moderate LPF (None Seen); SQUAMOUS EPITHELIAL CELL,UR 0-2 /HPF (0-2); WBC,URINE 0-1 /HPF (0-1)
== END 2019-10-17 18:36 | disposition home or self-care (01) ==
LOC: EDH 16:55
DX: J06.9 Acute upper respiratory infection, unspecified (principal); R10.30 Lower abdominal pain, unspecified; R11.0 Nausea; J44.9 Chronic obstructive pulmonary disease, unspecified; G89.29 Other chronic pain; M54.9 Dorsalgia, unspecified
CPT/HCPCS: 36415; 71045; 80053; 81001; 83690; 84484; 85025; 87040 ×2; 87804 ×2; 93005; 96374; 96375; 99285; J2405

== ENCOUNTER 2019-10-19 14:58 | Emergency (ER) | payer MEDICARE ==
[2019-10-19] MEDS ORDERED: MORPHINE SULFATE 4 MG/1ML SYG ONE (15:55)
[2019-10-19] MEDS ORDERED: MORPHINE SULFATE 2 MG/ML 1ML SYG ONE (15:55)
[2019-10-19 16:01] LABS: APPEARANCE,URINE Clear (CLEAR); BILIRUBIN,URINE Negative (NEGATIVE); COLOR,URINE Dark Yellow (YELLOW); GLUCOSE, URINE (UA) Negative (NEGATIVE); KETONES,URINE Negative (NEGATIVE); LEUKOCYTE ESTERASE ,URINE Negative (NEGATIVE); NITRATE,URINE Negative (NEGATIVE); OCCULT BLOOD,URINE Negative (NEGATIVE); PH,URINE 6.5 (5.0-8.0); PROTEIN,URINE Negative (NEGATIVE)
[2019-10-19 16:38] LABS: BACTERIA,URINE None Seen /HPF (None Seen); WBC,URINE 0-1 /HPF (0-1)
== END 2019-10-19 16:34 | disposition home or self-care (01) ==
LOC: EDH 14:58
DX: M54.5 Low back pain (principal); G89.29 Other chronic pain
CPT/HCPCS: 81001; 96372; 99283; J2270

== ENCOUNTER 2020-01-27 12:54 | Emergency (ER) | payer MEDICARE ==
[2020-01-27] MEDS ORDERED: ONDANSETRON ODT 4 MG TAB ONE (13:42)
[2020-01-27] MEDS ORDERED: MORPHINE SULFATE 4 MG/1ML SYG ONE (13:43)
== END 2020-01-27 15:30 | disposition home or self-care (01) ==
LOC: EDH 12:54
DX: M54.5 Low back pain (principal); G89.29 Other chronic pain; J44.9 Chronic obstructive pulmonary disease, unspecified
CPT/HCPCS: 81001; 96372; 99283; J2270

== ENCOUNTER 2020-02-01 14:44 | Inpatient (IN) | payer MEDICARE ==
[~2020-02-01] VITALS: Ht 167.6 cm; Wt 106.1 kg
[~2020-02-01 14:44] MED LIST changes: -NADO20TA12 PO; +NADO20TA3 PO
[2020-02-01 15:22] LABS: BASOPHILS % (AUTO) 0.8 % (0.0-5.0); EOSINOPHILS % (AUTO) 3.3 % (0.0-8.0); HEMATOCRIT 32.3 % (42-54); LYMPHOCYTES % (AUTO) 37.4 % (21.0-51.0); MEAN CORPUSCULAR HEMOGLOBIN 33.3 pg (27.0-33.0); MEAN CORPUSCULAR HGB CONC 34.1 g/dL (32.0-36.0); MEAN CORPUSCULAR VOLUME 97.9 fL (79-99); MONOCYTES % (AUTO) 11.2 % (3.0-13.0); PLATELET COUNT (AUTO) 100 K/uL (130-400); RED CELL DISTRIBUTION WIDTH 15.4 % (11.0-15.5); WHITE BLOOD COUNT (AUTO) 3.9 K/uL (4.8-10.8)
[2020-02-01 15:32] LABS: APPEARANCE,URINE Clear (CLEAR); BILIRUBIN,URINE Negative (NEGATIVE); COLOR,URINE Yellow (YELLOW); GLUCOSE, URINE (UA) Negative (NEGATIVE); KETONES,URINE Negative (NEGATIVE); LEUKOCYTE ESTERASE ,URINE Negative (NEGATIVE); NITRATE,URINE Negative (NEGATIVE); OCCULT BLOOD,URINE Negative (NEGATIVE); PH,URINE 7.5 (5.0-8.0); PROTEIN,URINE Negative (NEGATIVE)
[2020-02-01 15:47] LABS: INR 1.32 (0.85-1.15); PARTIAL THROMBOPLASTIN TIME 32.8 SEC (26.3-35.5); PROTHROMBIN TIME 14.1 SEC (9.6-11.6)
[2020-02-01 15:48] LABS: CREATININE 0.8 mg/dL (0.5-1.5)
[2020-02-01 15:56] LABS: ALBUMIN 2.3 g/dL (3.5-5.0); BILIRUBIN,TOTAL 1.7 mg/dL (0.2-1.0); TOTAL PROTEIN, SERUM 5.8 g/dL (6.0-8.3)
[2020-02-01 22:00] VITALS: BP 152/50
[2020-02-01 23:31] VITALS: BP 143/49
--- NOTE | 2020-02-02 00:05 | NUR ---
FAMILY CALLED SPOKE WITH DEANDRE SOY- GERA/DAUGHTER ON THE PHONE. UPDATED HER ON PT'S STATUS. INFORMED HER THAT PT WAS ABLE TO DRINK LACTULOSE ONCE IN HIS ROOM, PREVIOUSLY HAD REFUSED TO TAKE LACTULOSE IN ED D/T NOT HAVING A PRIVATE BR. DEANDRE ASKED IF SHE WOULD BE ABLE TO COME VISIT THE PT IN THE AM, SPOKE WITH [employer] AND WAS GIVEN THE OK TO ALLOW HER TO VISIT. DEANDRE STATES SHE WILL BE VISITING HER FATHER IN THE AM AND HAD NO FURTHER QUESTIONS AT THIS TIME. REQUESTED FOR HER TO BRING HIS HOME MEDICATIONS TO BE RECONCILED, SHE SAID OK. DEANDRE OLIVIER [phone]
[2020-02-02] MEDS: LACTULOSE 20 GM/30 ML UDCUP PO SCH ×3 (00:10→17:06)
--- NOTE | 2020-02-02 03:42 | NUR ---
BOWEL MOVEMENT PT HAD A MODERATE, SOFT, BROWN BM ON THE BEDSIDE COMMODE. HUBERT OATES IN ROOM PROVIDING TOILETING ASSISTANCE.
[2020-02-02 04:00] VITALS: BP 153/59
[2020-02-02 05:24] LABS: HEMATOCRIT 31.6 % (42-54); MEAN CORPUSCULAR HEMOGLOBIN 33.9 pg (27.0-33.0); MEAN CORPUSCULAR HGB CONC 34.2 g/dL (32.0-36.0); MEAN CORPUSCULAR VOLUME 99.1 fL (79-99); RED BLOOD CELL COUNT(AUTO) 3.19 MIL/uL (4.50-6.20); RED CELL DISTRIBUTION WIDTH 15.1 % (11.0-15.5); WHITE BLOOD COUNT (AUTO) 3.2 K/uL (4.8-10.8)
[2020-02-02 05:40] LABS: ALBUMIN 2.3 g/dL (3.5-5.0); BILIRUBIN,TOTAL 2.5 mg/dL (0.2-1.0); CREATININE 0.7 mg/dL (0.5-1.5); POTASSIUM 3.7 mmol/L (3.5-5.1); TOTAL PROTEIN, SERUM 5.6 g/dL (6.0-8.3)
[2020-02-02 08:00] VITALS: BP 141/63
[2020-02-02] MEDS ORDERED: FURO20TA4 PO (10:01)
[2020-02-02] MEDS: CHOLECALCIFEROL 2000 UNIT PO SCH (10:25)
[2020-02-02] MEDS: MULTIVITAMIN TABLET PO SCH (11:47)
[2020-02-02] MEDS: PANTOPRAZOLE SODIUM 40 MG TABLET.DR PO SCH (11:48)
[2020-02-02] MEDS: RIFAXIMIN 550 MG TABLET PO SCH ×2 (11:48→20:13)
[2020-02-02] MEDS: ZINC SULFATE 220 CAPSULE PO SCH (11:48)
[2020-02-02 12:00] VITALS: BP 138/68
--- NOTE | 2020-02-02 13:30 | NUR ---
CM DC PLANNING MET W PATIENT AT BEDSIDE FOR DC PLANING- THIS CM REMEMBERS PATIENT FROM LAST ADMISSION. TUTU DUNN LIVES WITH SPOUSE, USES A WALKER, HAS PORVIDER SERVICESE 27 HRS PER WEEK, AND TRIED TO BE COMPLIANT W MEDICAILUPE. SPOEK TO DAUGHTER DEANDRE OUT SIDE ROOM WHO STATES SHE WILL PROVIDE TRASNPORT, SHE LOOKS AFTER HIS MEDICAL CARE AND THEY HAVE NOTICES A DECLINE LATELY. PT WITH LIVER DISEASE DCP IS HOME IN CARE OF FAMILY Addendum: 02/02/20 at 2137 by OBEI MOSLEY RN CM Amended: Links added.
[2020-02-02 16:00] VITALS: BP 160/70
[2020-02-02 19:20] VITALS: BP 144/71
[2020-02-02] MEDS: METOPROLOL TARTRATE 50 MG TAB PO SCH (20:13)
[2020-02-02] MEDS: MAGNESIUM OXIDE 400 MG TABLET PO SCH (20:13)
[2020-02-02] MEDS ORDERED: MONTELUKAST SODIUM 10 MG TAB PO SCH (21:00)
[2020-02-02] MEDS ORDERED: NADOLOL 40 MG TAB PO SCH (21:00)
[2020-02-02] MEDS ORDERED: TAMSULOSIN HCL 0.4 MG CAP.ER.24H PO SCH (21:00)
[2020-02-02 23:35] VITALS: BP 133/44
[2020-02-03] MEDS: LACTULOSE 20 GM/30 ML UDCUP PO SCH ×2 (00:07→06:45)
[2020-02-03 03:41] VITALS: BP 106/52
[2020-02-03] MEDS: PANTOPRAZOLE SODIUM 40 MG TABLET.DR PO SCH (06:45)
[2020-02-03 07:56] VITALS: BP 132/53
[2020-02-03] MEDS: MAGNESIUM OXIDE 400 MG TABLET PO SCH (08:02)
[2020-02-03] MEDS: MULTIVITAMIN TABLET PO SCH (08:02)
[2020-02-03] MEDS: RIFAXIMIN 550 MG TABLET PO SCH (08:02)
[2020-02-03] MEDS: METOPROLOL TARTRATE 50 MG TAB PO SCH (08:03)
[2020-02-03] MEDS: ZINC SULFATE 220 CAPSULE PO SCH (08:30)
[2020-02-03] MEDS: CHOLECALCIFEROL 2000 UNIT PO SCH (08:30)
[2020-02-03 12:00] VITALS: BP 125/39
--- NOTE | 2020-02-03 13:25 | NUR ---
PT HAS HAD 2 LIQUID BOWEL MOVEMENTS TODAY; HE IS ALERT AND ORIENTED X3 NO LONGER SHOWING SIGNS OF CONFUSION; DR ANGEL STATED TO D/C HIM HOME TODAY AND NO NEED TO RECHECK AMMONIA LEVEL; I HAVE CALLED PT'S AND DAUGHTER AND LET THEM KNOW THAT HE IS GOING TO BE GOING HOME TODAY; THEY ARE GOING TO PICK HIM UP AT 1335; IV ACCESS REMOVED AND PT STATED UNDERSTANDING OF ALL D/C INSTRUCTIONS ON TAKING LACTULOSE TO HELP KEEP HIS AMMONIA LEVEL DOWN. NO PERSCRIPTIONS ORDERED AND NO F/U REQUESTED BY SO I HAVE TOLD PT TO F/U W/ HIS PCP DR MOSES IN 3-4 DAYS OR RETURN TO ED IF SYMPTOMS RETURN OF CONFUSION AND ABDOMINAL PAIN AND TAKING EXTRA LACTULOSE DOESNT RESOLVE IT.
== END 2020-02-03 14:00 | disposition home or self-care (01) | DRG 442 ==
LOC: EDH 14:44 → EDHIP 19:18 → 3BH 21:07
PROVIDERS: ADMIT Internal Medicine Nephrology; ATTEND Internal Medicine Nephrology
DX: K72.90 Hepatic failure, unspecified without coma (principal); D61.818 Other pancytopenia; E78.00 Pure hypercholesterolemia, unspecified; I10 Essential (primary) hypertension; J44.9 Chronic obstructive pulmonary disease, unspecified; K74.60 Unspecified cirrhosis of liver; N40.0 Benign prostatic hyperplasia without lower urinary tract symptoms; Z91.14 Patient's other noncompliance with medication regimen; Z82.49 Family history of ischemic heart disease and other diseases of the circulatory system
CPT/HCPCS: 36415; 71045; 74176; 80053; 81003; 82140; 82150; 82550; 83690; 84484; 85025; 85027; 85610; 85730; 93005; G0378

== ENCOUNTER 2020-06-16 16:04 | Emergency (ER) | payer MEDICARE ==
[~2020-06-16 16:04] MED LIST changes: +FURO20TA4 PO
[2020-06-16 16:36] LABS: BASOPHILS % (AUTO) 0.1 % (0.0-5.0); EOSINOPHILS % (AUTO) 0.9 % (0.0-8.0); HEMATOCRIT 36.8 % (42-54); LYMPHOCYTES % (AUTO) 12.9 % (21.0-51.0); MEAN CORPUSCULAR HEMOGLOBIN 33.3 pg (27.0-33.0); MEAN CORPUSCULAR HGB CONC 34.5 g/dL (32.0-36.0); MEAN CORPUSCULAR VOLUME 96.6 fL (79-99); MONOCYTES % (AUTO) 12.2 % (3.0-13.0); NEUTROPHILS % (AUTO) 73.6 % (40.0-77.0); PLATELET COUNT (AUTO) 90 K/uL (130-400); RED BLOOD CELL COUNT(AUTO) 3.81 MIL/uL (4.50-6.20); RED CELL DISTRIBUTION WIDTH 16.3 % (11.0-15.5)
[2020-06-16 16:45] LABS: CREATININE 0.7 mg/dL (0.5-1.5)
[2020-06-16 16:47] LABS: INR 1.32 (0.85-1.15); PARTIAL THROMBOPLASTIN TIME 26.1 SEC (26.3-35.5); PROTHROMBIN TIME 14.1 SEC (9.6-11.6)
[2020-06-16 16:52] LABS: ALBUMIN 2.1 g/dL (3.5-5.0); BILIRUBIN,TOTAL 3.5 mg/dL (0.2-1.0); TOTAL PROTEIN, SERUM 5.7 g/dL (6.0-8.3)
== END 2020-06-16 17:56 | disposition home or self-care (01) ==
LOC: EDH 16:04
DX: R18.8 Other ascites (principal); K74.60 Unspecified cirrhosis of liver; R06.00 Dyspnea, unspecified; G89.29 Other chronic pain; J44.9 Chronic obstructive pulmonary disease, unspecified
CPT/HCPCS: 36415; 80053; 82140; 83690; 84484; 85025; 85610; 85730

== ENCOUNTER 2020-06-17 09:29 | Emergency (ER) | payer MEDICARE ==
[2020-06-17] MEDS ORDERED: ALBUMIN (HUMAN) 25% 200 ML IV SCH (11:15)
[2020-06-17] MEDS ORDERED: ALBUMIN (HUMAN) 25% 200 ML IV ONE (11:21)
--- NOTE | 2020-06-17 11:30 | NUR ---
U/S GUIDED PARACENTESIS PROCEDURE PERFORMED BY DR. CHARLES. PUNCTURE SITE LEFT LOWER QUADRANT AND PATIENT TOLERATED PROCEDURE WELL. TOTAL REMOVED 4.0 LITERS OF YELLOW CLOUDY ASCITES FLUID. END OF PROCEDURE AT 1155. CATHETER REMOVED AND DRESSING APPLIED. NO BLEEDING NOTED. ALBUMIN 25% 50 GRAMS GIVEN IV PER ALBUMIN PROTOCOL. DISCHARGE INSTRUCTIONS GIVEN TO PATIENT. PATIENT VERBALIZED UNDERSTANDING. . REPORT GIVEN TO DAMIR SAINZ AND PATIENT TRANSPORTED TO ED VIA W/C. PT STABLE, AAO X 3 WITH NO C/O PAIN.
[2020-06-17 13:47] LABS: APPEARANCE BODY FLUID CLEAR (CLEAR); BODY FLUID WBC 34 /cu. mm.; COLOR,BODY FLUID YELLOW (LT YELLOW); SPECIMENTYPE,BODY FLUID ASCITES; TOTAL VOLUME,BODY FLUID 4000 mL
[2020-06-17 13:48] LABS: BODY FLUID RBC 109 /cu. mm.
[2020-06-17 13:59] LABS: BF LYMPHOCYTE 15 %; BF MESOTHELIAL 46 %; BF MONOCYTE 22 %
== END 2020-06-17 12:57 | disposition home or self-care (01) ==
LOC: EDH 09:29
DX: R18.8 Other ascites (principal); K74.69 Other cirrhosis of liver; J44.9 Chronic obstructive pulmonary disease, unspecified; G89.29 Other chronic pain; M54.5 Low back pain; Z91.041 Radiographic dye allergy status; Z87.891 Personal history of nicotine dependence
CPT/HCPCS: 49083; 87071; 87205; 89051; 96365; 99285; A4215; P9046

== ENCOUNTER → 2020-06-25 | Outpatient (CLI) | payer MEDICARE ==
[~2020-06-25] MED LIST changes: +ALBUMIN (HUMAN) 25% 200 ML IV SCH; +DIPH25CA53 PO; +FAMO40TA7 PO; +HYDR-3421 PO; +IBUP-2077 PO; +IPRA4AER IH; +SPIR50TA5 PO
--- NOTE | 2020-06-25 12:00 | NUR ---
U/S GUIDED PARACENTESIS PROCEDURE PERFORMED BY DR. Beau MENDEZ. PUNCTURE SITE RIGHT LOWER QUADRANT AND PATIENT TOLERATED PROCEDURE WELL. TOTAL REMOVED 3.5 LITERS OF YELLOW CLOUDY ASCITES FLUID. END OF PROCEDURE AT 1130. CATHETER REMOVED AND DRESSING APPLIED. NO BLEEDING NOTED. ALBUMIN 25% NOT GIVEN IV PER ALBUMIN PROTOCOL. DISCHARGE INSTRUCTIONS GIVEN TO PATIENT. PATIENT VERBALIZED UNDERSTANDING. DISCHARGED VIA W/C AT 1200. AAO X3 WITH NO C/O PAIN.
== END | disposition home or self-care (01) ==
LOC: RAH 09:04
PROVIDERS: ATTEND Internal Medicine Gastroenterology
DX: R18.8 Other ascites (principal); K74.60 Unspecified cirrhosis of liver; Z79.899 Other long term (current) drug therapy
CPT/HCPCS: 49083; A4215; P9046